=== PATIENT | female | born 1950 | race African-American/Black ===

== ENCOUNTER 2021-09-26 08:03 | Day surgery (SDC) | payer OTHER ==
[2021-09-22 13:37] VITALS: BMI 44.8
[2021-09-26] MEDS ORDERED: PROPOFOL 20 ML ONE ×3 (08:29)
[2021-09-26] MEDS ORDERED: GLYCOPYRROLATE 0.2 MG/1 ML VIAL ONE (09:07)
[2021-09-26 09:54] VITALS: PULSE 69; TEMP 98
[2021-09-26 10:08] VITALS: BP 168/64; RESP 18
== END 2021-09-26 10:20 | disposition home or self-care (01) ==
LOC: FASU-ENDO 08:03
PROVIDERS: ATTEND Internal Medicine Gastroenterology
PROC: 0DBH8ZX Excision of Cecum, Via Natural or Artificial Opening Endoscopic, Diagnostic (ICD-10-PCS; principal; 2021-09-26 09:22)
DX: Z12.11 Encounter for screening for malignant neoplasm of colon (principal); D12.0 Benign neoplasm of cecum
CPT/HCPCS: 82962; 88305-TC